=== PATIENT | male | born 1985 | race Caucasian/White ===

== ENCOUNTER 2016-08-15 02:15 | Emergency (ER) | payer SELFPAY ==
--- NOTE | ~2016-08-15 | CR127 ---
[facility] A Service of [facility] RADIOLOGY TEXT RESULTS PATIENT: EDDY GARCIA LOCATION: [facility] : 85 UNIT #: [id number] AGE: [address]: Teagan Parson MD SEX: M ORDER DR: [id number] [place] [id number] [facility]. [place], [place] [address] [id number] MR#: [id number] Acc #: [id number] NAME: EDDY GARCIA : 1985 SEX: M STUDY DATE/TIME: 08/15/2016 0:42 UNIT: CFTX ROOM: STUDY DESCRIPTION: CR Foot Complete Min 3 View Rt Attending Physician: Teagan Parson M.D. Ordering Physician: Teagan Parson M.D. Primary Care Physician: Primary Care Physician No MEDICAL IMAGING REPORT This report is preliminary unless electronic signature is present EXAM 3 views of the right foot. DATE 08/15/2016 HISTORY Right foot pain and swelling near the great toe for 2 weeks. Professional dancer. COMPARISON None. FINDINGS There is an obliquely oriented, nondisplaced intraarticular fracture involving the proximal and medial margin of the distal phalanx of the great toe. No joint dislocation is seen. Moderate osteoarthritic changes are suggested at the interphalangeal joint. Additionally, there is a 4-mm calcification located at the proximal medial margin of the DIP joint, which may represent acute cortical avulsion injury from the proximal medial articular surface of the great toe, as well. Soft tissue swelling is seen at the great toe. No retained radiopaque foreign body is seen in the soft tissues. IMPRESSION 1. Oblique, intraarticular, nondisplaced fracture at the proximal medial articular surface of the distal phalanx of the great toe. 2. Questionable avulsion injury involving the proximal and medial margin of the distal phalanx of the great toe near its articular surface, as well. 3. Moderate osteoarthritic changes are suggested at the interphalangeal joint of the great toe. 4. No joint dislocation. [facility] A Service [facility] RADIOLOGY TEXT RESULTS PATIENT: EDDY GARCIA LOCATION: [facility] : 85 UNIT #: [id number] AGE: [address]: Teagan Parson MD SEX: M ORDER DR: Dictated by... Maryanne Hamm M.D. THIS IS AN ELECTRONICALLY VERIFIED REPORT Maryanne Hamm M.D. at 08/15/2016 10:[address] [facility]/john paul TD: 08/15/2016 03:16 JOB #: [id number] MEDICAL IMAGING REPORT Page 1 of 1 COPY
== END 2016-08-15 02:26 | disposition home or self-care (01) ==
LOC: CFTX 02:15
DX: S92.424A Nondisplaced fracture of distal phalanx of right great toe, initial encounter for closed fracture (principal); F17.200 Nicotine dependence, unspecified, uncomplicated; X58.XXXA Exposure to other specified factors, initial encounter; Y92.009 Unspecified place in unspecified non-institutional (private) residence as the place of occurrence of the external cause; Y93.41 Activity, dancing
CPT/HCPCS: 29515; 73630; 99283